=== PATIENT | female | born 1935 | race Caucasian/White ===

== ENCOUNTER → 2017-04-09 | Outpatient (CLI) | payer MEDICARE, BC ==
[~2017-04-09] MED LIST: ATOXIMETIN-B1 CAP PO; B-12 100 MCG; BENICAR HCT 12.1 TAB PO; CIPRO 500MG TA500 MG PO; COMPLETE SENIOR1 TA1 PO; FIBRE1 TAB PO; FOSAMAX 70MG TA70 MG PO; KRILL OIL; LORTAB 5/500 501 TAB PO; MASON NATURAL1200 MG PO; MULTIPLE VITAMI1 TAB PO; MVI; NEXIUM40 MG PO; NORCO 325 MG-51 TAB PO; OMEGA 31000 MG PO; OSCAL W/VIT D250 MG PO; PEPCID 20MG TAB20 MG PO; PROBIOTIC-MAJOR PO; SYNTHROID0.075 MG PO; SYNTHROID0.075 MG/T PO; ULTRAM50 MG PO; VIT B COMPLEX; VITAMIN D5000 IU PO
== END ==
LOC: MC.RAD 13:26
DX: Z12.31 Encounter for screening mammogram for malignant neoplasm of breast (principal); R92.1 Mammographic calcification found on diagnostic imaging of breast

== ENCOUNTER 2017-08-27 21:11 | Inpatient (IN) | payer MEDICARE, BC ==
[~2017-08-27] VITALS: Ht 157.5 cm; Wt 86.4 kg
[2017-08-27 21:42] LABS: BASO # 0.1 (0.0-0.2); BASO % 0.5 % (0.0-2.0); EOS # 0.2 (0.0-0.7); EOS % 1.6 % (0-4.0); GRAN # 7.4 (1.4-6.5); GRAN % 64.9 % (42.2-75.2); HEMATOCRIT 38.3 % (37.0-47.0); HEMOGLOBIN 13.2 g/dl (12.5-16.0); LYMPH # 2.7 (1.2-3.4); LYMPH % 23.9 % (20.0-51.0); MEAN CELL VOLUME 90 fl (80.0-100.0); MEAN CORPUSCULAR HEMOGLOBIN 31 pg (27.0-31.0); MEAN CORPUSCULAR HGB CONC 35 g/dl (33.0-37.0); MEAN PLATELET VOLUME 10.4 fl (7.4-10.4); MONO % 8.7 % (1.7-9.3); PLATELET COUNT 251 K/mm3 (130-400); RED BLOOD COUNT 4.28 M/mm3 (4.10-5.30); WHITE BLOOD COUNT 11.3 K/mm3 (4.8-10.8)
[2017-08-27 21:46] LABS: PROTHROMBIN TIME 11.6 SECONDS (9.7-12.8)
[2017-08-27 22:04] LABS: B-TYPE NATRIURETIC PEPTIDE 158 pg/mL (0-450)
[2017-08-27 22:05] LABS: TROPONIN-I < 0.012 ng/mL (0.000-0.034)
[2017-08-27 22:14] LABS: ADJUSTED CALCIUM 9.4 mg/dL (8.4-10.2); ALANINE AMINOTRANSFERASE 24 U/L (9-52); ALBUMIN 4.4 gm/dL (3.5-5.0); ALKALINE PHOSPHATASE 81 U/L (50-136); ANION GAP 11 mmol/L (7-16); BILIRUBIN,TOTAL 0.5 mg/dL (0.0-1.0); BLOOD UREA NITROGEN 19 mg/dL (7-17); CALCIUM 9.7 mg/dL (8.4-10.2); CARBON DIOXIDE 26 mmol/L (22-30); CHLORIDE 99 mmol/L (98-107); CREATININE, serum 0.84 mg/dL (0.52-1.25); GLUCOSE 111 mg/dL (74-106); POTASSIUM 3.9 mmol/L (3.4-5.0); SODIUM 136 mmol/L (137-145); TOTAL PROTEIN 7.4 gm/dL (6.4-8.2)
[2017-08-28] VITALS (7 sets, daily range): BP systolic 114–146; BP diastolic 35–56; PULSE 56–80; TEMP 97.3–99.1
[2017-08-28 07:18] LABS: BASO % 0.6 % (0.0-2.0); EOS # 0.2 (0.0-0.7); EOS % 2.6 % (0-4.0); GRAN # 3.9 (1.4-6.5); GRAN % 55.9 % (42.2-75.2); LYMPH # 2.2 (1.2-3.4); LYMPH % 31.6 % (20.0-51.0); MEAN CELL VOLUME 90 fl (80.0-100.0); MEAN CORPUSCULAR HGB CONC 34 g/dl (33.0-37.0); MEAN PLATELET VOLUME 10.7 fl (7.4-10.4); MONO # 0.6 (0.1-0.6); MONO % 8.9 % (1.7-9.3); PLATELET COUNT 228 K/mm3 (130-400)
[2017-08-28 07:22] LABS: HEMATOCRIT 35.2 % (37.0-47.0); HEMOGLOBIN 11.9 g/dl (12.5-16.0); MEAN CORPUSCULAR HEMOGLOBIN 31 pg (27.0-31.0)
[2017-08-28 07:47] LABS: ANION GAP 9 mmol/L (7-16); BLOOD UREA NITROGEN 16 mg/dL (7-17); CALCIUM 8.8 mg/dL (8.4-10.2); CARBON DIOXIDE 27 mmol/L (22-30); CHLORIDE 102 mmol/L (98-107); CREATININE, serum 0.87 mg/dL (0.52-1.25); GLUCOSE 82 mg/dL (74-106); SODIUM 138 mmol/L (137-145)
[2017-08-28 07:59] LABS: CHOLESTEROL 189 mg/dL (120-200); CHOLESTEROL RISK RATIO 3.8; HDL CHOLESTEROL 49 mg/dL; LDL CHOLESTEROL 115 mg/dL; TRIGLYCERIDE 127 mg/dL
[2017-08-28 08:07] LABS: TSH w REFLEX 1.9 uIU/mL (0.465-4.680)
[2017-08-28 08:12] LABS: TROPONIN-I < 0.012 ng/mL (0.000-0.034)
[2017-08-28 12:25] LABS: MAGNESIUM 2.1 mg/dL (1.6-2.3)
[2017-08-29 03:56] VITALS: BP 122/64; PULSE 80; TEMP 99
[2017-08-29 08:11] VITALS: BP 131/60; PULSE 69; TEMP 98
[2017-08-29 12:01] VITALS: BP 128/56; PULSE 81; TEMP 97.6
[2017-08-29 15:51] VITALS: BP 139/59; PULSE 79; TEMP 97.7
[2017-08-29 20:31] VITALS: BP 129/57; PULSE 68; TEMP 98
[2017-08-30 00:04] VITALS: BP 109/52; PULSE 71; TEMP 98
[2017-08-30 03:40] VITALS: BP 115/48; PULSE 71; TEMP 97.8
[2017-08-30 07:31] VITALS: BP 136/59; PULSE 65; TEMP 97.5
[2017-08-30 11:18] VITALS: BP 148/64; PULSE 57; TEMP 97.9
[2017-08-30] MEDS ORDERED: LIPITOR 40MG TA40 MG PO (11:36)
[2017-08-30] MEDS ORDERED: ASPIRIN 81M81 MG/TA2 PO (11:37)
[2017-08-30] MEDS ORDERED: LOPRESSOR 225 MG/TAB PO (11:37)
[2017-08-30] MEDS ORDERED: ZANTAC 150MG T150 MG PO (11:39)
== END 2017-08-30 14:21 | disposition home or self-care (01) | DRG 313 ==
LOC: COL.ER 21:11 → MEDICAL 21:36
PROVIDERS: Emergency Medicine; Nurse Practitioner
DX: R07.9 Chest pain, unspecified (principal); I10 Essential (primary) hypertension; E03.9 Hypothyroidism, unspecified; E78.5 Hyperlipidemia, unspecified; R00.2 Palpitations; R00.1 Bradycardia, unspecified; Z66 Do not resuscitate
CPT/HCPCS: 99222-AI; 99233-AI; C9113; G0378; J1650; J2270; J7030; Q9967

== ENCOUNTER → 2017-09-08 | Outpatient (CLI) | payer MEDICARE, BC ==
[~2017-09-08] MED LIST changes: +ASPIRIN 81M81 MG/TA2 PO; +LIPITOR 40MG TA40 MG PO; +LOPRESSOR 225 MG/TAB PO; +ZANTAC 150MG T150 MG PO
== END ==
LOC: COL.VAS 11:02
DX: M79.89 Other specified soft tissue disorders (principal); R79.1 Abnormal coagulation profile

== ENCOUNTER 2018-03-08 10:16 | Emergency (ER) | payer MEDICARE, BC ==
[~2018-03-08] VITALS: Ht 160 cm; Wt 86.4 kg
[2018-03-08] MEDS ORDERED: BENICAR HCT 251 TAB PO (10:30)
[2018-03-08 10:42] LABS: BASO # 0.1 (0.0-0.2); BASO % 0.7 % (0.0-2.0); EOS # 0.1 (0.0-0.7); EOS % 1.3 % (0-4.0); GRAN # 5.2 (1.4-6.5); GRAN % 58.6 % (42.2-75.2); HEMATOCRIT 39.1 % (37.0-47.0); HEMOGLOBIN 13.6 g/dl (12.5-16.0); LYMPH # 2.7 (1.2-3.4); LYMPH % 30.3 % (20.0-51.0); MEAN CELL VOLUME 87 fl (80.0-100.0); MEAN CORPUSCULAR HEMOGLOBIN 30 pg (27.0-31.0); MEAN CORPUSCULAR HGB CONC 35 g/dl (33.0-37.0); MEAN PLATELET VOLUME 10.2 fl (7.4-10.4); MONO # 0.8 (0.1-0.6); MONO % 8.8 % (1.7-9.3); PLATELET COUNT 283 K/mm3 (130-400); REDCELL DISTRIBUTION WIDTH-CV 12.4 % (11.5-14.5)
[2018-03-08 10:51] LABS: ALANINE AMINOTRANSFERASE 31 U/L (9-52); ALBUMIN 4.2 gm/dL (3.5-5.0); ALKALINE PHOSPHATASE 91 U/L (50-136); ANION GAP 11 mmol/L (7-16); AST,SGOT 38 U/L (15-37); BILIRUBIN,TOTAL 0.5 mg/dL (0.0-1.0); BLOOD UREA NITROGEN 27 mg/dL (7-17); CALCIUM 9.6 mg/dL (8.4-10.2); CARBON DIOXIDE 26 mmol/L (22-30); CHLORIDE 99 mmol/L (98-107); CREATININE, serum 0.92 mg/dL (0.52-1.25); GLUCOSE 97 mg/dL (74-106); POTASSIUM 4.2 mmol/L (3.4-5.0); SODIUM 136 mmol/L (137-145)
[2018-03-08 11:04] LABS: TROPONIN-I < 0.012 ng/mL (0.000-0.034)
[2018-03-08 11:06] VITALS: TEMP 98.1
[2018-03-08] MEDS ORDERED: PRILOTC PO (15:24)
[2018-03-08 15:34] VITALS: BP 122/78; PULSE 80
== END 2018-03-08 15:35 | disposition home or self-care (01) ==
LOC: COL.ER 10:16
PROVIDERS: Emergency Medicine
DX: M54.6 Pain in thoracic spine (principal); R07.89 Other chest pain; R10.13 Epigastric pain; I10 Essential (primary) hypertension; I48.91 Unspecified atrial fibrillation; I49.5 Sick sinus syndrome; Z87.891 Personal history of nicotine dependence; Z79.82 Long term (current) use of aspirin
CPT/HCPCS: J2270; J7030; Q9967

== ENCOUNTER → 2018-04-06 | Outpatient (CLI) | payer MEDICARE, BC ==
[~2018-04-06] MED LIST changes: +BENICAR HCT 251 TAB PO; +PRILOTC PO
== END ==
LOC: MHCPAIN 14:27
DX: G89.29 Other chronic pain (principal); M47.817 Spondylosis without myelopathy or radiculopathy, lumbosacral region; M54.16 Radiculopathy, lumbar region; M53.3 Sacrococcygeal disorders, not elsewhere classified; M48.061 Spinal stenosis, lumbar region without neurogenic claudication; M43.10 Spondylolisthesis, site unspecified
CPT/HCPCS: G0463

== ENCOUNTER 2018-04-19 19:22 | Emergency (ER) | payer MEDICARE, BC ==
[~2018-04-19] VITALS: Ht 160 cm; Wt 86.4 kg
[2018-04-19 19:27] VITALS: BP 173/93; TEMP 97.6
[2018-04-19] MEDS ORDERED: CYMBALTA 20MG20 MG PO (20:03)
[2018-04-19] MEDS ORDERED: NORCO 325 MG-51 TAB PO (20:53)
[2018-04-19 21:09] VITALS: PULSE 87
== END 2018-04-19 21:09 | disposition home or self-care (01) ==
LOC: COL.ER 19:22
DX: S82.492A Other fracture of shaft of left fibula, initial encounter for closed fracture (principal); S82.62XA Displaced fracture of lateral malleolus of left fibula, initial encounter for closed fracture; W18.39XA Other fall on same level, initial encounter; X50.0XXA Overexertion from strenuous movement or load, initial encounter; Y92.009 Unspecified place in unspecified non-institutional (private) residence as the place of occurrence of the external cause
CPT/HCPCS: Q4045

== ENCOUNTER → 2018-07-05 | Emergency (ER) | payer MEDICARE, BC ==
[~2018-07-05] VITALS: Ht 154.9 cm; Wt 85.9 kg
[~2018-07-05] MED LIST changes: +CYMBALTA 20MG20 MG PO; +PREDNISONE20 MG PO; +PROTONIX 40MG T40 MG PO
[2018-07-05 11:55] VITALS: TEMP 97.6
[2018-07-05 12:46] LABS: BASO # 0.1 (0.0-0.2); BASO % 0.6 % (0.0-2.0); EOS # 0.1 (0.0-0.7); EOS % 1.1 % (0-4.0); GRAN # 7.4 (1.4-6.5); GRAN % 70.2 % (42.2-75.2); HEMATOCRIT 37.5 % (37.0-47.0); LYMPH # 2.1 (1.2-3.4); LYMPH % 19.8 % (20.0-51.0); MEAN CELL VOLUME 88 fl (80.0-100.0); MEAN CORPUSCULAR HEMOGLOBIN 30 pg (27.0-31.0); MEAN CORPUSCULAR HGB CONC 35 g/dl (33.0-37.0); MEAN PLATELET VOLUME 10.7 fl (7.4-10.4); MONO # 0.8 (0.1-0.6); PLATELET COUNT 275 K/mm3 (130-400); RED BLOOD COUNT 4.27 M/mm3 (4.10-5.30); REDCELL DISTRIBUTION WIDTH-CV 12.5 % (11.5-14.5)
[2018-07-05 12:56] LABS: ALANINE AMINOTRANSFERASE 25 U/L (9-52); ALKALINE PHOSPHATASE 70 U/L (50-136); ANION GAP 14 mmol/L (7-16); AST,SGOT 28 U/L (15-37); BILIRUBIN,TOTAL 0.5 mg/dL (0.0-1.0); BLOOD UREA NITROGEN 19 mg/dL (7-17); C-REACTIVE PROTEIN 1.3 mg/dL (0.0-0.9); CALCIUM 9.3 mg/dL (8.4-10.2); CARBON DIOXIDE 24 mmol/L (22-30); CHLORIDE 99 mmol/L (98-107); CREATININE, serum 0.95 mg/dL (0.52-1.25); GLUCOSE 131 mg/dL (74-106); POTASSIUM 3.7 mmol/L (3.4-5.0); SODIUM 137 mmol/L (137-145)
[2018-07-05 13:05] LABS: TROPONIN-I < 0.012 ng/mL (0.000-0.034)
[2018-07-05 15:00] VITALS: BP 123/78; PULSE 93
== END ==
LOC: COL.ER 11:54
PROVIDERS: Emergency Medicine
DX: J40 Bronchitis, not specified as acute or chronic (principal); K21.9 Gastro-esophageal reflux disease without esophagitis; I10 Essential (primary) hypertension; I48.91 Unspecified atrial fibrillation; Z79.82 Long term (current) use of aspirin
CPT/HCPCS: J7512; Q9967

== ENCOUNTER → 2020-09-03 | Outpatient (CLI) | payer MEDICARE, BC | LOC: COL.LAB 08:37 | DX: Z01.818 Encounter for other preprocedural examination (principal); Z20.828 Contact with and (suspected) exposure to other viral communicable diseases ==

== ENCOUNTER → 2020-10-07 | Outpatient (CLI) | payer MEDICARE, OTHER | LOC: COL.VAS 13:00 | DX: M79.89 Other specified soft tissue disorders (principal) ==

== ENCOUNTER 2021-04-27 14:03 | Emergency (ER) | payer MEDICARE, OTHER ==
[~2021-04-27] VITALS: Ht 160 cm; Wt 86.4 kg
[2021-04-27 14:10] VITALS: TEMP 97.4
[2021-04-27 15:13] LABS: BASO # 0.1 (0.0-0.2); BASO % 0.8 % (0.0-2.0); EOS # 0.1 (0.0-0.7); EOS % 1.8 % (0-4.0); GRAN # 4.5 (1.4-6.5); HEMATOCRIT 39.5 % (37.0-47.0); HEMOGLOBIN 13.1 g/dl (12.5-16.0); LYMPH # 2.1 (1.2-3.4); LYMPH % 27.9 % (20.0-51.0); MEAN CELL VOLUME 91 fl (80.0-100.0); MEAN CORPUSCULAR HEMOGLOBIN 30 pg (27.0-31.0); MEAN CORPUSCULAR HGB CONC 33 g/dl (33.0-37.0); MEAN PLATELET VOLUME 10.3 fl (7.4-10.4); MONO # 0.7 (0.1-0.6); MONO % 9.1 % (1.7-9.3); PLATELET COUNT 230 K/mm3 (130-400); RED BLOOD COUNT 4.35 M/mm3 (4.10-5.30)
[2021-04-27 15:18] LABS: COLLECTION METHOD CLEAN CATCH
[2021-04-27 15:23] LABS: ALANINE AMINOTRANSFERASE 14 U/L (4-34); ALBUMIN 3.7 gm/dL (3.5-5.0); ALKALINE PHOSPHATASE 87 U/L (50-136); ANION GAP 6 mmol/L (7-16); AST,SGOT 28 U/L (15-37); BILIRUBIN,TOTAL 0.3 mg/dL (0.0-1.0); BLOOD UREA NITROGEN 21 mg/dL (7-17); C-REACTIVE PROTEIN 0.8 mg/dL (0.0-0.9); CALCIUM 8.7 mg/dL (8.4-10.2); CARBON DIOXIDE 28 mmol/L (22-30); CHLORIDE 105 mmol/L (98-107); CREATININE, serum 0.79 (0.52-1.25); GLUCOSE 104 mg/dL (74-106); POTASSIUM 4.4 mmol/L (3.4-5.0); SODIUM 138 mmol/L (137-145); TOTAL PROTEIN 6.7 gm/dL (6.4-8.2)
[2021-04-27 15:28] LABS: MUCOUS Present /lpf; PH 5 (5-8); SQUAMOUS EPITHELIAL 0-2 /hpf; URINE APPEARANCE Hazy; URINE BACTERIA None Seen /hpf; URINE BILIRUBIN Negative (NEGATIVE); URINE BLOOD Negative (NEGATIVE); URINE COLOR Yellow; URINE GLUCOSE Negative (NEGATIVE); URINE KETONE Trace (NEGATIVE); URINE LEUKOCYTE ESTERASE Negative (NEGATIVE); URINE NITRATE Negative (NEGATIVE); URINE PROTEIN(semi-quant) Negative (NEGATIVE)
[2021-04-27 15:40] LABS: ERYTHROCYTE SEDIMENTATION RATE 10 mm/hr (0-30)
[2021-04-27 15:51] LABS: TROPONIN-I < 0.012 ng/mL (0.000-0.035)
[2021-04-27 15:58] LABS: PROTHROMBIN TIME 11.3 SECONDS (9.7-12.8)
[2021-04-27 17:40] VITALS: BP 142/82; PULSE 91
== END 2021-04-27 17:46 | disposition home or self-care (01) ==
LOC: COL.ER 14:03
PROVIDERS: Emergency Medicine
DX: G45.9 Transient cerebral ischemic attack, unspecified (principal); E03.9 Hypothyroidism, unspecified; I49.5 Sick sinus syndrome; Z79.890 Hormone replacement therapy

== ENCOUNTER 2021-06-23 09:12 | Emergency (ER) | payer MEDICARE, OTHER ==
[~2021-06-23] VITALS: Ht 157.5 cm; Wt 86.4 kg
[2021-06-23 10:29] VITALS: TEMP 98.1
[2021-06-23 11:12] LABS: COLLECTION METHOD CLEAN CATCH
[2021-06-23 11:18] LABS: BASO # 0.1 (0.0-0.2); BASO % 0.9 % (0.0-2.0); EOS # 0.1 (0.0-0.7); EOS % 1.8 % (0-4.0); GRAN # 4.4 (1.4-6.5); GRAN % 57.8 % (42.2-75.2); HEMATOCRIT 41.4 % (37.0-47.0); HEMOGLOBIN 13.5 g/dl (12.5-16.0); LYMPH # 2.3 (1.2-3.4); LYMPH % 30.2 % (20.0-51.0); MEAN CELL VOLUME 92 fl (80.0-100.0); MEAN CORPUSCULAR HEMOGLOBIN 30 pg (27.0-31.0); MEAN CORPUSCULAR HGB CONC 33 g/dl (33.0-37.0); MEAN PLATELET VOLUME 9.9 fl (7.4-10.4); MONO # 0.7 (0.1-0.6); MONO % 8.8 % (1.7-9.3); PLATELET COUNT 254 K/mm3 (130-400); RED BLOOD COUNT 4.48 M/mm3 (4.10-5.30); REDCELL DISTRIBUTION WIDTH-CV 12.9 % (11.5-14.5)
[2021-06-23 11:23] LABS: INR 1.5 (0.8-3.0); PROTHROMBIN TIME 16.5 SECONDS (9.7-12.8)
[2021-06-23 11:24] LABS: MUCOUS Present /lpf; PH 5 (5-8); SQUAMOUS EPITHELIAL 0-2 /hpf; URINE APPEARANCE Clear; URINE BACTERIA None Seen /hpf; URINE BILIRUBIN Negative (NEGATIVE); URINE BLOOD Negative (NEGATIVE); URINE COLOR Yellow; URINE GLUCOSE Negative (NEGATIVE); URINE KETONE Negative (NEGATIVE); URINE LEUKOCYTE ESTERASE Trace (NEGATIVE); URINE NITRATE Negative (NEGATIVE); URINE PROTEIN(semi-quant) Negative (NEGATIVE); URINE RBC 0-2 /hpf; URINE UROBILINOGEN Negative (NEGATIVE)
[2021-06-23 11:40] LABS: ALANINE AMINOTRANSFERASE 15 U/L (4-34); ALKALINE PHOSPHATASE 95 U/L (50-136); ANION GAP 4 mmol/L (7-16); AST,SGOT 28 U/L (15-37); BILIRUBIN,TOTAL 0.3 mg/dL (0.0-1.0); BLOOD UREA NITROGEN 16 mg/dL (7-17); CALCIUM 8.7 mg/dL (8.4-10.2); CARBON DIOXIDE 30 mmol/L (22-30); CHLORIDE 102 mmol/L (98-107); CREATININE, serum 0.76 (0.52-1.25); GLUCOSE 93 mg/dL (74-106); POTASSIUM 4.2 mmol/L (3.4-5.0); SODIUM 136 mmol/L (137-145); TOTAL PROTEIN 7.1 gm/dL (6.4-8.2)
[2021-06-23 12:01] LABS: TROPONIN-I < 0.012 ng/mL (0.000-0.035)
[2021-06-23 15:24] VITALS: BP 161/83; PULSE 83
== END 2021-06-23 15:25 | disposition home or self-care (01) ==
LOC: COL.ER 09:12
PROVIDERS: Nurse Practitioner; Student in an Organized Health Care Education/Training Program
DX: R07.9 Chest pain, unspecified (principal); I48.91 Unspecified atrial fibrillation; E03.9 Hypothyroidism, unspecified; M06.9 Rheumatoid arthritis, unspecified; M19.91 Primary osteoarthritis, unspecified site; Z79.82 Long term (current) use of aspirin; Z79.890 Hormone replacement therapy; Z79.01 Long term (current) use of anticoagulants; Z79.899 Other long term (current) drug therapy

== ENCOUNTER 2022-02-14 18:31 | Emergency (ER) | payer MEDICARE, OTHER ==
[~2022-02-14] VITALS: Ht 157.5 cm; Wt 86.4 kg
[2022-02-14 18:39] VITALS: TEMP 98.1
[2022-02-14 20:16] VITALS: BP 164/91; PULSE 90
== END 2022-02-14 20:16 | disposition home or self-care (01) ==
LOC: COL.ER 18:31
DX: S93.602A Unspecified sprain of left foot, initial encounter (principal); I48.91 Unspecified atrial fibrillation; Z88.6 Allergy status to analgesic agent; Z79.01 Long term (current) use of anticoagulants; X50.1XXA Overexertion from prolonged static or awkward postures, initial encounter